=== PATIENT | male | born 1975 | race Caucasian/White ===

== ENCOUNTER 2017-01-23 19:32 | Emergency (ER) | payer OTHER ==
[~2017-01-23] VITALS: Ht 170.2 cm; Wt 68.0 kg
--- NOTE | 2017-01-23 20:12 | RADIOLOGY REPORT ---
EXAMINATION: XR HAND, LEFT CLINICAL INFORMATION: Shot with nail gun COMPARISON: None TECHNIQUE: AP, lateral, and oblique views of the left hand. FINDINGS: No bony finding. No bony violation or fracture. No dislocation. No convincing evidence for radiopaque foreign body. IMPRESSION: No bony finding.
--- NOTE | 2017-01-23 20:28 | ED HAND/WRIST INJURY COMPLAINT ---
History of Present Illness General Chief Complaint: Hand or Wrist Injury Stated Complaint: "SHOT IN L HAND WITH NAILGUN" SWELLING PER PT Source: patient Exam Limitations: no limitations Vital Signs & Intake/Output Vital Signs & Intake/Output Vital Signs Date Time Temp Pulse Resp B/P B/P Pulse O2 O2 Flow FiO2 Mean Ox Delivery Rate 01/23 2101 97.1 72 18 140/80 98 01/23 2006 97.6 73 18 127/72 98 Room Air ED Intake and Output 01/24 0000 01/23 1200 Intake Total Output Total Balance Patient 150 lb Weight Weight Reported by Patient Measurement Method Allergies Coded Allergies: NO KNOWN ALLERGIES (04/09/13) Reconcile Medications Amoxicillin/Potassium Clav (Augmentin 875-125 Tablet) 875 MG-125 MG TABLET 1 TAB PO BID puncture wound prophylaxis Ibuprofen 800 MG TABLET 1 TAB PO Q8 PRN PAIN Triage Note: PT TO TRIAGE WITH C/O PAIN AND SWELLING TO LEFT HAND S/P SHOT L HAND WITH NAILGUN. PT PULLED NAIL OUT OF HIS HAND. PUNKTURE WOUND NOTED TO PALM OF LEFT HAND. NO BLEEDING NOTED. LAST TETANUS VACCINATION WITHIN 3YEARS. PT MEDICATED WITH TYLENOL IN TRIAGE. Triage Nurses Notes Reviewed? yes HPI: Patient is a 41 year old male presents complaining of pain to his left hand. Patient accidentally shot a nail into the palmar surface of his left hand while at work today. Last tetanus immunization was 2 years ago. Pain is moderate to severe, a throbbing sensation, worsens with movement and palpation. Associated swelling and difficulty with flexion and extension of his left index finger. Patient is right-hand dominant. (SHARONDA REYES) Past History Travel History Traveled to [place] past 21 day No Medical History Any Pertinent Medical History? see below for history Musculoskeletal: right fifth metacarpal fracture Psychiatric: anxiety, depression Tetanus Vaccine: 02/14/13 Surgical History Surgical History: non-contributory Psychosocial History What is your primary language Azeri Tobacco Use: Current Daily Use Daily Tobacco Use Amount/Type: => 5 Cigarettes daily Family History Hx Contributory? No (SHARONDA REYES) Review of Systems Review of Systems Constitutional: Denies: chills, fever. Cardiovascular: Denies: chest pain. GI: Denies: abdominal pain. Musculoskeletal: Reports: see HPI. Skin: Reports: see HPI. Neurological/Psychological: Denies: numbness, paresthesia. Hematologic/Endocrine: Denies: bruising, bleeding. Immunologic/Allergic: Denies: splenectomy. (SHARONDA REYES) Physical Exam Physical Exam General Appearance: well developed/nourished, alert, awake Head: atraumatic, normal appearance Eyes: Bilateral: normal appearance. Ears, Nose, Throat: hearing grossly normal Neck: normal inspection, supple, full range of motion Cardiovascular/Respiratory: no respiratory distress Back: normal range of motion Hand Left: 2 mm puncture wound proximal to the MCP joint of the left index finger on the volar surface. Extension limited to approximately 30 degrees of the mcp, PIP and DIP joints of the left index finger. Capillary refill and sensation normal. Hand Right: normal inspection, normal range of motion Neurologic/Tendon: normal sensation, active flexion 30 degrees of the left index finger at the MCP, PIP and DIP joints. Skin: warm/dry (SHARONDA REYES) Progress Differential Diagnosis: tenosynovitis, foreign body, fracture, tendon laceration Plan of Care: Current Medications Sig/Richard Start time Last Medication Dose Stop Time Status Admin Amoxicillin/ 500 MG ONCE ONE 01/23 2100 UNVr Clavulanate Potassium 01/23 2101 (Augmentin) Wound cleansed with beatdine and copiously irrigated with sterile water. Finger splint placed. Patient to follow up with hand specialist if not improving. Will start on prophylactic antibiotics. (SHARONDA REYES) Diagnostic Imaging: Viewed by Me: Radiology Read. Discussed w/RAD: Radiology Read. Radiology Impression: PATIENT: KAE QUINONEZ PRESENT AGE: 41 PATIENT ACCOUNT NO: [id number] : 73 LOCATION: [facility] ORDERING PHYSICIAN: SHAVONNE CHA MD SERVICE DATE: 01/23/17 EXAM TYPE: RAD - XRY-HAND, LEFT EXAMINATION: XR HAND, LEFT CLINICAL INFORMATION: Shot with nail gun COMPARISON: None TECHNIQUE: AP, lateral, and oblique views of the left hand. FINDINGS: No bony finding. No bony violation or fracture. No dislocation. No convincing evidence for radiopaque foreign body. IMPRESSION: No bony finding. DICTATED BY: ANGELICA SAUCEDO MD DATE/TIME DICTATED:01/23/172007 SALESPERSON MEN'S FURNISHINGS:ARIAS DATE/TIME TRANSCRIBED:01/23/172007 CONFIDENTIAL, DO NOT COPY WITHOUT APPROPRIATE AUTHORIZATION. <Electronically signed in Other Vendor System> SIGNED BY: ANGELICA SAUCEDO MD 01/23/172011 (SHARONDA REYES) Departure Departure Disposition: HOME OR SELF CARE Condition: Stable Clinical Impression Primary Impression: Puncture wound of hand, left Qualifiers: Encounter type: initial encounter Foreign body presence: without foreign body Qualified Code: S61.432A - Puncture wound without foreign body of left hand, initial encounter Referrals: [facility] RAJPUT,ISELA MARRERO DO,PAULO Falcon (PCP/Family) Additional Instructions: Elevate, wear finger splint for support. Follow up with Dr. Arnett(hand specialist) if no improvement within 2 days. Return to the ER if redness develops, pus from wound, continued decreased range of motion of your finger, fevers, or worsening of symptoms. Departure Forms: Customer Survey General Discharge Information Prescriptions: Current Visit Scripts Amoxicillin/Potassium Clav (Augmentin 875-125 Tablet) 1 TAB PO BID #14 TAB Ibuprofen 1 TAB PO Q8 PRN PAIN #20 TAB (SHARONDA REYES) PA/TRANSMISSION SPECIALIST Co-Sign Statement Statement: ED Attending supervision documentation- [] I saw and evaluated the patient. I have also reviewed all the pertinent lab results and diagnostic results. I agree with the findings and the plan of care as documented in the PA's/TRANSMISSION SPECIALIST's documentation. [X] I have reviewed the ED Record and agree with the PA's/TRANSMISSION SPECIALIST's documentation. [] Additions or exceptions (if any) to the PAs/TRANSMISSION SPECIALIST's note and plan are summarized below: [] (STARLA RAJPUT,SHAVONNE Elliott)
[2017-01-23] MEDS ORDERED: IBUPROFEN800 M1 PO (20:51)
[2017-01-23] MEDS ORDERED: AUGMENTIN 875-1 EACH PO (20:51)
[2017-01-23 21:01] VITALS: BP 140/80
== END 2017-01-23 21:05 ==
LOC: ERH 19:32
DX: S61.432A Puncture wound without foreign body of left hand, initial encounter (principal); W29.4XXA Contact with nail gun, initial encounter; Y92.9 Unspecified place or not applicable; Y93.9 Activity, unspecified
CPT/HCPCS: 73130-LT; J3490

== ENCOUNTER 2018-01-09 17:44 | Emergency (ER) | payer OTHER ==
[~2018-01-09] VITALS: Ht 170.2 cm; Wt 68.0 kg
[~2018-01-09 17:44] MED LIST: AUGMENTIN 875-1 EACH PO; IBUPROFEN800 M1 PO; PERCOCET 5-3251 EACH PO
[2018-01-09 18:06] VITALS: BP 116/77
== END 2018-01-09 19:45 | disposition admitted as inpatient to this hospital (09) ==
LOC: ERH 17:44
DX: N20.0 Calculus of kidney (principal)
CPT/HCPCS: 81003; 99281

== ENCOUNTER 2018-01-15 19:38 | Emergency (ER) | payer OTHER ==
[2018-01-15 20:22] VITALS: BP 125/69
--- NOTE | 2018-01-15 21:47 | ED GI/GU/ABDOMINAL COMPLAINT ---
History of Present Illness General Chief Complaint: General Adult Stated Complaint: L SIDE PAIN, "KIDNEY STONE" PER PT Source: patient, old records Exam Limitations: no limitations Vital Signs & Intake/Output Vital Signs & Intake/Output Vital Signs Date Time Temp Pulse Resp B/P B/P Pulse O2 O2 Flow FiO2 Mean Ox Delivery Rate 01/15 2022 96.0 85 20 125/69 96 Room Air Allergies Coded Allergies: NO KNOWN ALLERGIES (04/09/13) Reconcile Medications Amoxicillin/Potassium Clav (Augmentin 875-125 Tablet) 875 MG-125 MG TABLET 1 TAB PO BID puncture wound prophylaxis Ibuprofen 800 MG TABLET 1 TAB PO TID pain Ibuprofen 800 MG TABLET 1 TAB PO Q8 PRN PAIN Ondansetron (Zofran Odt) 4 MG TAB.RAPDIS 1 TAB SL TID PRN nausea Oxycodone HCl/Acetaminophen (Percocet 5-325 MG Tablet) 5 MG-325 MG TABLET 1 TAB PO BID PRN PAIN Oxycodone HCl/Acetaminophen (Percocet 5-325 MG Tablet) 5 MG-325 MG TABLET 1 TAB PO BID pain Triage Note: PT TO ED C/O LEFT SIDE PAIN "RIGHT BELOW MY RIB CAGE" SINCE THIS AM, WORSE SINCE THIS AFTERNOON. STATES WAS DX WITH A KIDNEY STONE HERE 2 WEEKS AGO "I DID DRINK SOME THIS AFTERNOON TO KILL THE PAIN" HAS OLD SCABBED WOUND TO NOSE "I'M NOT HERE FOR THAT" DENIES UTI S/S Triage Nurses Notes Reviewed? yes Onset: Abrupt Duration: day(s): (1), intermittent, waxing and waning Timing: recent history Quality/Severity: aching, sharpness, severe, stabbing Severity Numbers: 8 Location: left flank Radiation: LLQ Activities at Onset: none Prior Abdominal Problems: similar symptoms No Modifying Factors: none Associated Symptoms: denies HPI: 42-year-old male with history of kidney stones presents after he states he developed sudden onset left flank pain remains a left lower quadrant while at work this afternoon. The patient was seen here 10 days ago for the same which time he was diagnosed with multiple bilateral renal stones. He did not follow- up with the urologist. He reports to small amount of hematuria today he ran out of Percocet a few weeks ago however he states he was helping with his pain at the time. No fever no chills nausea vomiting diarrhea. No chest pain or shortness of breath (Ho Mckeon) Past History Travel History Traveled to [place] past 21 day No Medical History Any Pertinent Medical History? see below for history Neurological: NONE EENT: NONE Cardiovascular: NONE Respiratory: NONE Gastrointestinal: NONE Hepatic: NONE Renal: nephrolithiasis Musculoskeletal: right fifth metacarpal fracture Psychiatric: alcohol dependence, depression Endocrine: NONE Tetanus Vaccine: 02/14/13 Surgical History Surgical History: non-contributory Psychosocial History Who do you live with Mother What is your primary language Tristanian Tobacco Use: Current Daily Use Daily Tobacco Use Amount/Type: => 5 Cigarettes daily ETOH Use: alcoholic Illicit Drug Use: denies illicit drug use Family History Hx Contributory? No (Ho Mckeon) Review of Systems Review of Systems Constitutional: Reports: see HPI. Comments Review of systems: See HPI, All other systems negative. Constitutional, no chills no fever, HEENT: no sore throat no congestion Cardiovascular: No chest pain , Skin: no rashes, no change in skin Respiratory: No dyspnea no cough no sputum GI: No nausea no vomiting, no diarrhea : No dysuria hematuria, no frequency Muscle skeletal: No joint pain Neurologic: , no headache Heme/endocrine: No bruising (Ho Mckeon) Physical Exam Physical Exam General Appearance: well developed/nourished, no apparent distress, alert Gastrointestinal: normal bowel sounds, soft, non-tender Comments: Well-developed well-nourished person in no acute distress HEENT: Normal EENT exam; PERRL, EOMI, HEAD is atraumatic. moist mucous membranes. Neck: Supple,normal range of motion Back: Nontender, no CVA tenderness. Full range of motion Cardiovascular: Regular rate and rhythms no murmurs rub Respiratory: No respiratory distress. Patient speaking in full complete sentences. Breath sounds clear to auscultation bilaterally: NO W/R/R Abdomen: Soft, nontender nondistended, no appreciable organomegaly. Normal bowel sounds. No rebound/guarding, No appreciable enlargement of the abdominal aorta, No ascites. Extremity: No edema, full range of motion of extremities Neuro: Alert oriented x3, motor sensory normal, There were no obvious focal neurologic abnormalities. Skin: No appreciable rash on exposed skin, skin is warm and dry. Psych: Mood and affect is normal, memory and judgment is normal. Core Measures ACS in differential dx? No Sepsis Present: No Sepsis Focused Exam Completed? No (Ho Mckeon) Progress Differential Diagnosis: epididymitis, prostatitis, perforated viscous, pyelonephritis, ureterolithiasis, urethritis, UTI/pyelo Plan of Care: Orders Procedure Date/time Status URINALYSIS 01/15 2029 Complete Laboratory Tests 01/15/182036: Urine Color YEL, Urine Clarity CLEAR, Urine pH 6.0, Ur Specific [place] 1.015, Urine Protein NEG, Urine Ketones NEG, Urine Nitrite NEG, Urine Bilirubin NEG, Urine Urobilinogen 0.2, Ur Leukocyte Esterase NEG, Ur Microscopic SEDIMENT EXAMINED, Urine RBC 1-3, Urine Hemoglobin MOD H, Urine Glucose NEG The CAT scan from the patient's previous visit on January 05 was reviewed he is resting comfortably upon my evaluation will be into the room he was currently sleeping he denies any pain at this time I did discuss with him his CAT scan results and need for follow-up with urology. Return precautions were discussed at length he is afebrile and nontoxic. Do not believe he requires further workup at this time. Normal Percocet and Zofran he feels comfortable with plan cleared for discharge Initial ED EKG: none (Ho Mckeon) Departure Departure Time of Disposition: 2154 Disposition: HOME OR SELF CARE Condition: Stable Clinical Impression Primary Impression: Kidney stones Referrals: Pee RAJPUT,Archie Tucker DO (PCP/Family) Additional Instructions: Follow-up with urologist Dr. Glasgow tomorrow. Percocet for breakthrough pain. Zofran if needed for nausea. Return anytime sooner with any concerns. Departure Forms: Customer Survey General Discharge Information Prescriptions: Current Visit Scripts Oxycodone HCl/Acetaminophen (Percocet 5-325 MG Tablet) 1 TAB PO BID #12 TAB Ondansetron (Zofran Odt) 1 TAB SL TID PRN nausea #10 TAB (Ho Mckeon) PA/MERCHANDISE APPRAISER Co-Sign Statement Statement: ED Attending supervision documentation- [] I saw and evaluated the patient. I have also reviewed all the pertinent lab results and diagnostic results. I agree with the findings and the plan of care as documented in the PA's/MERCHANDISE APPRAISER's documentation. x] I have reviewed the ED Record and agree with the PA's/MERCHANDISE APPRAISER's documentation. [] Additions or exceptions (if any) to the PAs/MERCHANDISE APPRAISER's note and plan are summarized below: [] (Eloy Heart DO)
[2018-01-15] MEDS ORDERED: PERCOCET 5-3251 EACH PO (21:56)
[2018-01-15] MEDS ORDERED: ZOFRAN ODT4 M1 SL (21:56)
== END 2018-01-15 22:03 ==
LOC: ERH 19:38
DX: N20.0 Calculus of kidney (principal); R10.32 Left lower quadrant pain; F32.9 Major depressive disorder, single episode, unspecified; F17.210 Nicotine dependence, cigarettes, uncomplicated
CPT/HCPCS: 81001

== ENCOUNTER → 2018-01-22 | Day surgery (SDC) | payer OTHER ==
[~2018-01-22] VITALS: Ht 170.2 cm; Wt 68.0 kg
[~2018-01-22] MED LIST changes: +ZOFRAN ODT4 M1 SL
--- NOTE | 2018-01-22 13:34 | Operative Report ---
Operative/Inv Procedure Report Surgery Date: 01/22/18 Name of Procedure: left renal ESWL;fluoroscopy Pre-Operative Diagnosis: left 7mm stone with colic Post-Operative Diagnosis: same Estimated Blood Loss: none Surgeon/Pad Machine Offbearer: Shayan Glasgow MD Anesthesia: moderate sedation Specimens: none Complications: none Condition: pain pain free in RR Operative/Procedure Note Note: The patient was taken to the operating room and placed on the ESWL table in supine position. Timeout was performed, with the patient awake, in order to confirm correct patients identity, procedure, laterality, anesthesia, and other pertinent perioperative information. After adequate anesthesia and antibiotics, the patient was then positioned so that the LEFT Flank was overlying the ESWL table's cut-out, above the concussion dome of the shockwave generator. Fluroscopy, as well as renal US, was used to locate the stone, and LEFT stent. Using fluoroscopy with AP, and oblique views, the position of the left renal stone was confirmed and optimized in the c-arm crosshairs. The stone , previously in the ureter, and manipulated into the left renal pelvis, was approximately 7 mm in size, and was visible on fluroscopy. Renal ultrasound was also performed on the left side, confirming the presence of the left stone, and no hydronephrosis, with normal parenchyma, and no solid tumor. Flurosocpy was used in an AP and oblique views to maximize the position of the stone for ESWL. After optimized positioning, ESWL was initiated at low power levels. After noting the patient's tolerance to the shockwaves, the power was maximized. The renal stone was noted to bounce/move with each shockwave with real-time renal US visualization. Toward the end of the procedure, the composition of the left stones had changed significantly, indicating the breaking of the left renal stone. A total of 2500 shockwaves were delivered to the stone. The patient the tolerated the left ESWL procedure well. The patient was awakened, then taken to recovery in satisfactory condition via stretcher. The pt. was dischared with pain meds, diet orders, and intructions to catch fragments with straining the urine. The patient was given requisition to have follow-up renal ultrasound and KUB in 2-4 weeks, prior to follow-up visit in my office. Discharge Disposition: Same Day Admissions CC: Shayan Glasgow MD
== END ==
LOC: STS 03:24
DX: N20.0 Calculus of kidney (principal); N40.0 Benign prostatic hyperplasia without lower urinary tract symptoms; F17.200 Nicotine dependence, unspecified, uncomplicated
CPT/HCPCS: J2250

== ENCOUNTER 2018-05-19 13:17 | Emergency (ER) | payer OTHER ==
[~2018-05-19] VITALS: Ht 170.2 cm; Wt 63.5 kg
[2018-05-19 13:19] VITALS: BP 152/70
== END 2018-05-19 13:46 | disposition admitted as inpatient to this hospital (09) ==
LOC: ERH 13:17
DX: S91.119A Laceration without foreign body of unspecified toe without damage to nail, initial encounter (principal)